=== PATIENT | male | born 1980 | race African-American/Black ===

== ENCOUNTER 2019-05-27 12:17 | Emergency (ER) | payer SELFPAY ==
[~2019-05-27] VITALS: Ht 167.6 cm; Wt 90.0 kg
[2019-05-27] MEDS ORDERED: IBUPROFEN 400MG TABLET PO ONE (14:45)
[2019-05-27 14:50] VITALS: BP 140/85
== END 2019-05-27 14:55 | disposition home or self-care (01) ==
LOC: ER 12:17
DX: H60.8X2 Other otitis externa, left ear (principal)
CPT/HCPCS: 99283

== ENCOUNTER 2019-07-28 09:38 | Emergency (ER) | payer OTHER, MEDICAID ==
[~2019-07-28] VITALS: Ht 170.2 cm; Wt 82.0 kg
[2019-07-28] MEDS ORDERED: IBUPROFEN 800MG TABLET PO ONE (10:00)
[2019-07-28 10:57] VITALS: BP 136/99
== END 2019-07-28 11:01 | disposition home or self-care (01) ==
LOC: ER 09:38
DX: S02.2XXA Fracture of nasal bones, initial encounter for closed fracture (principal); S00.83XA Contusion of other part of head, initial encounter; R42 Dizziness and giddiness; Y04.0XXA Assault by unarmed brawl or fight, initial encounter; Y93.89 Activity, other specified; Y92.89 Other specified places as the place of occurrence of the external cause; R03.0 Elevated blood-pressure reading, without diagnosis of hypertension
CPT/HCPCS: 70486; 99284